=== PATIENT | female | born 1995 | race African-American/Black ===

== ENCOUNTER 2017-05-01 18:14 | Emergency (ER) | payer OTHER, MEDICAID ==
[2017-05-01 20:54] LABS: #Basophils 0.1 thou/uL (0.0-0.2); #Eosinphils 0.2 thou/uL (0.0-0.7); #Lymphocytes 1.9 thou/uL (1.20-3.40); #Monocytes 0.8 thou/uL (0.11-0.59); #Neutrophils 4.8 thou/uL (1.40-6.50); %Basophils 0.6 % (0.0-1.0); %Monocytes 9.7 % (0.0-10.0); Hematocrit 42.3 % (36.0-47.0); Mean Platelet Volume 7.8 fL (7.4-10.4); Red Blood Cell (RBC) Count 4.74 mill/uL (4.20-5.40); White Blood Cell (WBC) Count 7.7 thou/uL (4.8-10.8)
[2017-05-01 21:21] LABS: ALT (SGPT) 18 U/L (8-55); AST (SGOT) 17 U/L (5-34); Alkaline Phosphatase 59 U/L (40-150); Anion Gap 13 mmol/L (10-20); BUN (Urea Nitrogen) 6 mg/dL (7.0-18.7); Bilirubin, Total 0.6 mg/dL (0.2-1.2); Calc. Creatinine Clearance 0 mL/min (70-130); Calcium 9.6 mg/dL (7.8-10.44); Carbon Dioxide 27 mmol/L (22-29); Chloride 106 mmol/L (98-107); Estimated GFR-MDRD Greater than 90; Globulin 3.2 g/dL (2.4-3.5); Lipase 28 U/L (8-78); Protein, Total 7.4 g/dL (6.0-8.3)
== END 2017-05-01 21:20 | disposition home or self-care (01) ==
LOC: ERS 18:14
DX: H66.91 Otitis media, unspecified, right ear (principal); R10.9 Unspecified abdominal pain; E11.9 Type 2 diabetes mellitus without complications; I10 Essential (primary) hypertension
CPT/HCPCS: 80053; 82274; 83690; 84703; 85025; 93005

== ENCOUNTER 2017-08-04 13:39 | Emergency (ER) | payer MEDICAID, OTHER, SELFPAY ==
[2017-08-04 14:17] LABS: Bilirubin Negative (Negative); Blood, Urine Negative (Negative); Clarity CLOUDY (Clear); Glucose, Urine (Dipstick) Negative (Negative); Leukocyte Negative (Negative); Nitrite Negative (Negative); Protein, Urine (Dipstick) Negative (Neg-Trace); Specific Gravity, Urine 1.017 (1.002-1.036)
[2017-08-04 14:19] LABS: Pregnancy Test - Urine (BHCG) Negative (Negative); Pregu Control Background? CLEAR/WHITE (CLR/WHITE); Pregu Control Bar Appear? YES (CONTROL BAR); Specific Gravity 1.017 (1.002-1.036)
[2017-08-04] MEDS ORDERED: Ondansetron ODT 4 MG TAB ONE (14:58)
[2017-08-04] MEDS ORDERED: Acetaminophen 500 MG TAB ONE (15:19)
== END 2017-08-04 15:35 | disposition home or self-care (01) ==
LOC: ERS 13:39
DX: J11.1 Influenza due to unidentified influenza virus with other respiratory manifestations (principal); E11.9 Type 2 diabetes mellitus without complications; I10 Essential (primary) hypertension
CPT/HCPCS: 81003; 81025; 99283; Q0162

== ENCOUNTER 2017-08-28 01:12 | Emergency (ER) | payer OTHER, SELFPAY ==
[2017-08-28 01:30] LABS: Bilirubin Negative (Negative); Blood, Urine Negative (Negative); Clarity CLEAR (Clear); Glucose, Urine (Dipstick) Negative (Negative); Leukocyte Negative (Negative); Nitrite Negative (Negative); Protein, Urine (Dipstick) Negative (Neg-Trace)
[2017-08-28 01:36] LABS: #Basophils 0.2 thou/uL (0.0-0.2); #Eosinphils 0.1 thou/uL (0.0-0.7); #Lymphocytes 3.1 thou/uL (1.20-3.40); #Monocytes 0.5 thou/uL (0.11-0.59); #Neutrophils 3.6 thou/uL (1.40-6.50); %Basophils 2.3 % (0.0-1.0); %Eosinophils 1.7 % (0.0-10.0); %Lymphocytes 41.5 % (21.0-51.0); %Monocytes 6.7 % (0.0-10.0); %Neutrophils 47.9 % (42.0-75.0); Hemoglobin 13.6 g/dL (12.0-16.0); Mean Corpuscular HGB CONC 33.5 g/dL (32.0-36.0); Mean Corpuscular Hemoglobin 29.8 pg (27.0-31.0); Mean Corpuscular Volume 88.9 fl (81.0-99.0); Mean Platelet Volume 7.7 fL (7.4-10.4); Platelet Count 391 thou/uL (130-400); RBC Distribution Width 11.4 % (11.5-14.5); Red Blood Cell (RBC) Count 4.57 mill/uL (4.20-5.40); White Blood Cell (WBC) Count 7.5 thou/uL (4.8-10.8)
[2017-08-28 01:49] LABS: Pregnancy Test - Urine (BHCG) Negative (Negative); Pregu Control Background? CLEAR/WHITE (CLR/WHITE); Pregu Control Bar Appear? YES (CONTROL BAR)
[2017-08-28 01:58] LABS: Anion Gap 12 mmol/L (10-20); BUN (Urea Nitrogen) 10 mg/dL (7.0-18.7); Calc. Creatinine Clearance 0 mL/min (70-130); Calcium 9.5 mg/dL (7.8-10.44); Carbon Dioxide 25 mmol/L (22-29); Chloride 103 mmol/L (98-107); Estimated GFR-MDRD Greater than 90; Glucose 115 mg/dL (70-105); Lipase 35 U/L (8-78); Potassium 3.6 mmol/L (3.5-5.1); Sodium 136 mmol/L (136-145)
[2017-08-28] MEDS ORDERED: Ondansetron HCl/PF 4 MG in Sodium Chloride 0.9% 50 ML IVPB PRN (05:11)
[2017-08-28 05:19] LABS: BHCG - Serum Negative (NEGATIVE); Pregs Control Background? CLEAR/WHITE (CLR/WHITE); Pregs Control Bar Appear? YES (CONTROL BAR)
[2017-08-28] MEDS ORDERED: Ketorolac Tromethamine 30 MG/ML VIAL ONE (06:10)
--- NOTE | 2017-08-28 10:05 | HP ---
DATE OF SERVICE: 08/28/2017 TIME OF SERVICE: 4:30 a.m. LOCATION: ER bed 2. CHIEF COMPLAINT: Left lower quadrant pain. HISTORY OF PRESENT ILLNESS: This is a 22-year-old G1, P1-0-0-2, who [facility] sudden onset of severe left lower quadrant pain. She rates this pain 10/10, but has not taken anything for it. She describes the pain as sharp. Lying on her right side makes it a little bi t better. She has had diarrhea and bloating and belching for the last month, but says that this pain is different than that discomfort. She did have an episode of diarrhea prior to the pain. She dereje es any problems with urination. She reports an increase in discharge, but is relatively asymptomatic with that. REVIEW OF SYSTEMS: Negative for head, eyes, ears, nose, throat, cardiovascular, respiratory, GI, , neuro, psych, musculoskeletal, skin, or constitutional symptoms other than mentioned above. PAST MEDICAL HISTORY: 1. Type 2 diabetes. 2. Hypertension. PAST SURGICAL HISTORY: 1. x1 for twins. 2. Diagnostic laparoscopy a year ago for similar pain, but left ovarian hemorrhagic cyst with a smal l amount of blood in the belly with no torsion. SALESPERSON BOOKS HISTORY: She has a history of prior hemorrhagic cyst on her left ovary, treated with laparosc opy. She also has 1 prior with a for twins. She has not used anything for contr aception. Last menstrual period of 06/30/2017. MEDICATIONS: Metformin. ALLERGIES: 1. HYDROCODONE. 2. TRAMADOL. 3. TRAZODONE. 4. VICODIN. SOCIAL HISTORY: Negative for tobacco, alcohol, or drug abuse. She has 1 partner for the last 6-1/2 years. FAMILY HISTORY: Negative for breast, ovary, uterine, or colon cancer. PHYSICAL EXAMINATION: VITAL SIGNS: Blood pressure 130/83, pulse 108, temperature afebrile. GENERAL: Awake, alert, in no acute distress, appears comfortable. CHEST: Nonlabored breathing. ABDOMEN: Obese, soft, mildly tender to palpation. No rebound or guarding. Pelvic bimanual exam wit h no cervical motion tenderness. Exam otherwise unremarkable, but limited to body habitus. EXTREMITIES: A 1+ pitting edema. LABORATORY DATA: WBC 7.5, hemoglobin 13.6, hematocrit 40.6, platelets 391,000, glucose 115. Urinaly sis negative. Urine test negative. IMAGING: Transvaginal ultrasound was performed by Radiology and revealed an anteverted uterus that a ppeared within normal limits. Right ovary with 1 cm cyst and measured 4.05 x 2.1 x 3.2 cm. Left ova ry measured 2.33 x 1.85 x 2.3 cm, endometrial stripe 0.87 and questionably positional flow to the lef t ovary with what looks like physiologic free fluid in the pelvis. ASSESSMENT AND PLAN: A 22-year-old para 1 with left lower quadrant pain and sudden onset earlier tod ay. There is questionable decreased flow on ultrasound concerning by radiology for left ovarian tors ion; however, I think this is very unlikely given her normal size of her ovary and her clinical findi ngs. We will observe her for a few hours and repeat exam to determine the proper next step. I did r ecommend performing an hCG just to be certain that she is not and she has not had a period s zoe June.
--- NOTE | 2017-08-28 10:20 | ULT ---
PRELIMINARY REPORT/[facility]/EMERGENCY AFTER HOURS PROCEDURE: EXAM: US Pelvis, Transvaginal US Duplex Arterial/Venous of the Pelvis, Complete CLINICAL HISTORY: 22 years old, female; Pain; Other: Llq pain, HX of prev lt ov cyst 3 mo age TECHNIQUE: Real-time transvaginal pelvic ultrasound (complete) with image documentation. Transvaginal imaging wa s used for better evaluation of the endometrium and adnexa. Real-time duplex ultrasound scan of the arterial and venous flow of the pelvis with color Doppler reilly w and spectral waveform analysis was also performed for evaluation of pelvic and ovarian blood flow a nd torsion. COMPARISON: No relevant prior studies available. FINDINGS: Uterus/cervix: Endometrium measures 9 mm in thickness. No myometrial mass. Right ovary: Right ovarian follicle/corpus luteum. Normal blood flow. No evidence of torsion. Left ovary: Left ovary is located deep, posterior to the uterus and therefore difficult to visualize and evaluate. It is normal in size without enlargement or focal lesion, however blood flow is not wel l visualized/evaluated. Free fluid: Mild cul-de-sac free fluid. IMPRESSION: No left ovarian mass or enlargement, although blood flow is not well visualized/evaluated which could relate to positional/technical limitations; however recommend clinical correlation and gynecologic consultation if there is a concern for torsion. Thank you for allowing us to participate in the care of your patient. Dictated and Authenticated by: Devendra Don MD 08/28/2017 3:58 AM Central Time ([place] & [place]) FINAL REPORT PELVIC ULTRASOUND: Date: 08/28/17 HISTORY: Pelvic pain. COMPARISON: 12/25/16. TECHNIQUE: Endovaginal imaging of the pelvis is performed. Ovaries are interrogated with Nguyen scale, color flow, Doppler imaging, and spectral waveform analysis. FINDINGS/IMPRESSION: This report is in agreement with the preliminary report by [facility]. Uterus and endometrium are unremarka ble. Right ovary has an overall normal echotexture. There is flow. Follicle in the right ovary is not ed. Due to the location of the left ovary, evaluation is limited. No obvious left ovarian mass. Evalu ation for flow is limited due to location. Correlate clinically. PRESCRIPTION EYEGLASS MAKER consultation is recommended. Sma ll amount of free fluid in the cul-de-sac is noted. POS: SJ
--- NOTE | 2017-08-28 10:52 | DIS ---
DATE OF DISCHARGE: 08/28/2017 TIME OF SERVICE: 0850 hours. SUMMARY OF HOSPITAL COURSE: Ms. Lew presented to the emergency department around 0100 this tania ng, was seen by Dr. Mehta. She complained of left lower quadrant pain. Of note, the [facility] over the past several years. She received a laparoscopy by Dr. Colon a little over half a year ago with a small hemorrhagic ovarian cyst without evidence of tors ion. She presented today complaining of pain on 9-10 scale. She continues to complain of this pain; however, the patient has not had recent narcotics and yet had to be aroused from deep slumber to giv e this pain score. Her exam is benign, without rebound or guarding. Review of the ultrasound images revealed no evidence of torsion, cyst, or significant fluid consistent with intraabdominal hemorrhag e. After discussion with the patient, I feel like her care is best handled as an outpatient. She wi ll be discharged home. Follow up with her PHARMACY BENEFIT MANAGER. She was instructed to follow up with her PHARMACY BENEFIT MANAGER a bout chronic left lower quadrant pain and consider possible surgical management in a nonemergent outp atient ambulatory basis. No medications on discharge. Vital signs remained stable.
[2017-08-30 00:48] LABS: Chlamydia by PCR Not Detected (NotDetected); GC by PCR Not Detected (NotDetected)
== END 2017-08-28 09:07 | disposition home or self-care (01) ==
LOC: ERS 01:12
DX: R10.2 Pelvic and perineal pain (principal); E11.9 Type 2 diabetes mellitus without complications; I10 Essential (primary) hypertension; Z79.84 Long term (current) use of oral hypoglycemic drugs
CPT/HCPCS: 36415; 76856; 80048; 81003; 81025; 82150; 83690; 84703; 85025; 87480; 87491; 87510; 87591; 87660; 96374; J1885

== ENCOUNTER 2017-09-01 22:45 | Outpatient (CLI) | payer OTHER | END 2017-09-01 22:46 | disposition home or self-care (01) | LOC: LAB 22:45 | PROVIDERS: ATTEND Family Medicine | DX: Z00.00 Encounter for general adult medical examination without abnormal findings (principal); E11.9 Type 2 diabetes mellitus without complications; E78.5 Hyperlipidemia, unspecified; R10.9 Unspecified abdominal pain; R73.02 Impaired glucose tolerance (oral) | CPT/HCPCS: 83630; 87045; 87046; 87086; 87449; 87899 ==

== ENCOUNTER 2017-09-21 09:44 | Outpatient (CLI) | payer OTHER, MEDICAID ==
[2017-09-21] MEDS ORDERED: Iopamidol 370 76% 100 ML VIAL ONE (17:06)
== END 2017-09-21 09:45 | disposition home or self-care (01) ==
LOC: BICCT 09:44
PROVIDERS: ATTEND Internal Medicine Gastroenterology
DX: R10.32 Left lower quadrant pain (principal)
CPT/HCPCS: 74177

== ENCOUNTER 2018-01-06 20:53 | Emergency (ER) | payer OTHER, MEDICAID ==
[2018-01-06 21:30] LABS: Bilirubin Negative (Negative); Blood, Urine Negative (Negative); Clarity CLOUDY (Clear); Glucose, Urine (Dipstick) Negative (Negative); Leukocyte Small (Negative); Nitrite Negative (Negative); Protein, Urine (Dipstick) Negative (Neg-Trace); Specific Gravity, Urine 1.018 (1.002-1.036)
[2018-01-06 21:31] LABS: Bacteria/HPF Rare-Few HPF (None Seen); Hyaline Casts/LPF 0-3 HYALINE CAST LPF (0-3 Hyaline); Pathc Cast-AUWi Flag 0.72 (0-2.49); RBC/HPF 0-3 HPF (0-3); WBC/HPF 0-3 HPF (0-3)
[2018-01-06 21:50] LABS: #Eosinphils 0.1 thou/uL (0.0-0.7); #Lymphocytes 2.4 thou/uL (1.20-3.40); #Monocytes 0.6 thou/uL (0.11-0.59); #Neutrophils 3.6 thou/uL (1.40-6.50); %Basophils 0.3 % (0.0-1.0); %Eosinophils 0.9 % (0.0-10.0); %Monocytes 9.2 % (0.0-10.0); %Neutrophils 53.6 % (42.0-75.0); Hemoglobin 12.7 g/dL (12.0-16.0); Mean Corpuscular HGB CONC 34.3 g/dL (32.0-36.0); Mean Corpuscular Hemoglobin 29.5 pg (27.0-31.0); Mean Platelet Volume 7.6 fL (7.4-10.4); Platelet Count 311 thou/uL (130-400); RBC Distribution Width 11.6 % (11.5-14.5); Red Blood Cell (RBC) Count 4.32 mill/uL (4.20-5.40); White Blood Cell (WBC) Count 6.8 thou/uL (4.8-10.8)
--- NOTE | 2018-01-07 07:33 | ULT ---
PELVIC ULTRASOUND INCLUDING TRANSABDOMINAL AND TRANSVAGINAL AND VASCULAR DUPLEX WITH COLOR AND SPECTR AL DOPPLER IMAGING: Date: 01/06/18 COMPARISON: 08/28/17. HISTORY: Left lower quadrant pain for 2 days. Quantitative HCG 104. FINDINGS: The uterus measures 9.1 cm in length, and 5.0 x 5.1 cm transversely. The endometrium is thickened, up to 1.4 cm. Left ovary demonstrates a small, approximately 1.0 x 1.4 cm cyst. The right ovary demonst rates somewhat echogenic margined, thin-walled cyst measuring 0.8 x 1.1 cm. There is trace free fluid . IMPRESSION: No evidence for intrauterine or extrauterine by ultrasound. Follow-up serum HCGs are recomm ended. Depending on the results of that, a follow-up ultrasound examination in 5-7 days might be cons idered as well. POS: DENI
[2018-01-09 21:55] LABS: Chlamydia by PCR Not Detected (NotDetected); GC by PCR Not Detected (NotDetected)
== END 2018-01-07 00:12 | disposition home or self-care (01) ==
LOC: ERS 20:53
DX: O98.811 Other maternal infectious and parasitic diseases complicating pregnancy, first trimester (principal); B37.3 Candidiasis of vulva and vagina; E11.9 Type 2 diabetes mellitus without complications; I10 Essential (primary) hypertension; Z79.84 Long term (current) use of oral hypoglycemic drugs; Z3A.01 Less than 8 weeks gestation of pregnancy
CPT/HCPCS: 36415; 76856; 81003; 81015; 84702; 85025; 86850; 86900; 86901; 87086; 87480; 87491; 87510; 87591; 87660

== ENCOUNTER 2018-03-20 22:42 | Emergency (ER) | payer OTHER ==
[2018-03-21] MEDS ORDERED: Mag-Al 1200 mg/1200 mg/30 ML UDCUP ONE (00:01)
[2018-03-21] MEDS ORDERED: Lidocaine Viscous Sol 2% 15 ml UD Cup ONE (00:01)
[2018-03-21 00:05] LABS: #Eosinphils 0.1 thou/uL (0.0-0.7); #Lymphocytes 2.2 thou/uL (1.20-3.40); #Monocytes 0.5 thou/uL (0.11-0.59); #Neutrophils 3.8 thou/uL (1.40-6.50); %Basophils 0.5 % (0.0-1.0); %Eosinophils 0.8 % (0.0-10.0); %Lymphocytes 33.7 % (21.0-51.0); %Monocytes 7.1 % (0.0-10.0); %Neutrophils 57.9 % (42.0-75.0); Hemoglobin 12.2 g/dL (12.0-16.0); Mean Corpuscular HGB CONC 34.8 g/dL (32.0-36.0); Mean Corpuscular Hemoglobin 29.8 pg (27.0-31.0); Mean Corpuscular Volume 85.6 fL (78.0-98.0); Mean Platelet Volume 8.5 fL (7.4-10.4); Platelet Count 284 thou/uL (130-400); RBC Distribution Width 11.3 % (11.5-14.5); White Blood Cell (WBC) Count 6.6 thou/uL (4.8-10.8)
[2018-03-21 00:25] LABS: ALT (SGPT) 16 U/L (8-55); AST (SGOT) 17 U/L (5-34); Albumin 3.9 g/dL (3.5-5.0); Alkaline Phosphatase 44 U/L (40-150); Anion Gap 10 mmol/L (10-20); BUN (Urea Nitrogen) 5 mg/dL (7.0-18.7); Bilirubin, Total 0.8 mg/dL (0.2-1.2); Calc. Creatinine Clearance 0 mL/min (70-130); Calcium 9.6 mg/dL (7.8-10.44); Carbon Dioxide 26 mmol/L (22-29); Chloride 104 mmol/L (98-107); Estimated GFR-MDRD Greater than 90; Globulin 2.9 g/dL (2.4-3.5); Glucose 105 mg/dL (70-105); Magnesium 1.6 mg/dL (1.6-2.6); Potassium 3.6 mmol/L (3.5-5.1); Protein, Total 6.8 g/dL (6.0-8.3); Sodium 136 mmol/L (136-145)
[2018-03-21 01:06] LABS: Bilirubin Negative (Negative); Blood, Urine Negative (Negative); Clarity CLEAR (Clear); Glucose, Urine (Dipstick) Negative (Negative); Leukocyte Negative (Negative); Nitrite Negative (Negative); Protein, Urine (Dipstick) Negative (Neg-Trace); Specific Gravity, Urine 1.009 (1.002-1.036); Urobilinogen 0.2 mg/dL (0.2-1.0)
--- NOTE | 2018-03-24 11:57 | EKG ---
Test Reason : Blood Pressure : / mmHG Vent. Rate : 079 BPM Atrial Rate : 079 BPM P-R Int : 166 ms QRS Dur : 080 ms QT Int : 348 ms P-R-T Axes : 023 028 001 degrees QTc Int : 399 ms Sinus rhythm with sinus arrhythmia with occasional Premature ventricular complexes Otherwise normal ECG Confirmed by KHANG SWAIN ([id number]), editor in chief ADVE HERCULES ([id number]) on 03/24/2018 11:56:57 AM Referred By: Confirmed By:KHANG SWAIN
== END 2018-03-21 01:11 | disposition home or self-care (01) ==
LOC: ERS 22:42
DX: O99.89 Other specified diseases and conditions complicating pregnancy, childbirth and the puerperium (principal); R07.9 Chest pain, unspecified; E11.9 Type 2 diabetes mellitus without complications; I10 Essential (primary) hypertension; Z79.84 Long term (current) use of oral hypoglycemic drugs; Z79.82 Long term (current) use of aspirin; Z3A.15 15 weeks gestation of pregnancy
CPT/HCPCS: 36415; 80053; 81003; 83735; 85025; 93005

== ENCOUNTER 2018-06-08 16:31 | Emergency (ER) | payer OTHER | END 2018-06-08 18:16 | disposition left against medical advice (07) | LOC: ERS 16:31 | DX: Z53.21 Procedure and treatment not carried out due to patient leaving prior to being seen by health care provider (principal) ==

== ENCOUNTER 2018-10-19 07:32 | Emergency (ER) | payer OTHER ==
[2018-10-19] MEDS ORDERED: Lidocaine Viscous Sol 2% 15 ml UD Cup ONE (08:07)
[2018-10-19] MEDS ORDERED: Mag-Al 1200 mg/1200 mg/30 ML UDCUP ONE (08:07)
[2018-10-19] MEDS ORDERED: Famotidine 20 MG TAB ONE (08:07)
[2018-10-19 08:21] LABS: Hemoglobin 12.9 g/dL (12.0-16.0); Mean Corpuscular HGB CONC 33.3 g/dL (32.0-36.0); Mean Corpuscular Hemoglobin 28.5 pg (27.0-31.0); Mean Corpuscular Volume 85.7 fL (78.0-98.0); Mean Platelet Volume 8.5 fL (7.4-10.4); Platelet Count 358 thou/uL (130-400); RBC Distribution Width 12.1 % (11.5-14.5); Red Blood Cell (RBC) Count 4.53 mill/uL (4.20-5.40); White Blood Cell (WBC) Count 3.9 thou/uL (4.8-10.8)
[2018-10-19 08:26] LABS: BHCG - Serum Negative (NEGATIVE); Pregs Control Background? CLEAR/WHITE (CLR/WHITE); Pregs Control Bar Appear? YES (CONTROL BAR)
[2018-10-19 08:37] LABS: Eosinophils 2 % (0-10); Lymphocytes 50 % (21-51); MDiff Complete? YES; Monocytes 12 % (0-10); Neutrophil 30 % (42-75); Platelet Morphology Comment Appears Adequate; RBC Morphology Normal; Reactive Lymphocytes 6 % (0-10)
[2018-10-19 08:39] LABS: Bilirubin Negative (Negative); Blood, Urine Large (Negative); Clarity CLEAR (Clear); Glucose, Urine (Dipstick) Negative (Negative); Leukocyte Negative (Negative); Nitrite Negative (Negative); Protein, Urine (Dipstick) Trace mg/dL (Neg-Trace); Specific Gravity, Urine 1.017 (1.002-1.036); Urobilinogen 0.2 mg/dL (0.2-1.0); pH, Urine 5.5 (5.0-9.0)
[2018-10-19 08:40] LABS: ALT (SGPT) 19 U/L (8-55); AST (SGOT) 19 U/L (5-34); Albumin 4.4 g/dL (3.5-5.0); Alkaline Phosphatase 73 U/L (40-150); Anion Gap 11 mmol/L (10-20); BUN (Urea Nitrogen) 12 mg/dL (7.0-18.7); Bilirubin, Total 0.9 mg/dL (0.2-1.2); Calc. Creatinine Clearance 0 mL/min (70-130); Calcium 9.6 mg/dL (7.8-10.44); Carbon Dioxide 27 mmol/L (22-29); Chloride 104 mmol/L (98-107); Estimated GFR-MDRD Greater than 90; Globulin 2.9 g/dL (2.4-3.5); Glucose 116 mg/dL (70-105); Lipase 47 U/L (8-78); Protein, Total 7.3 g/dL (6.0-8.3); Sodium 138 mmol/L (136-145)
[2018-10-19 08:45] LABS: Bacteria/HPF None Seen HPF (None Seen); Hyaline Casts/LPF 0-3 HYALINE CAST LPF (0-3 Hyaline); Pathc Cast-AUWi Flag 0.27 (0-2.49); RBC/HPF 21-50 HPF (0-3); WBC/HPF 0-3 HPF (0-3)
--- NOTE | 2018-10-19 08:59 | ULT ---
ULTRASOUND ABDOMEN LIMITED: (RIGHT UPPER QUADRANT) DATE: 10/19/18 HISTORY: 23-year-old female with right upper quadrant abdominal pain. FINDINGS: Gallbladder: Multiple tiny mobile calculi a few millimeters in size each. Normal gallbladder wall thi ckness of less than 2 mm. No pericholecystic fluid. No sonographic Townsend sign. Common duct: 3 mm. Liver: Normal size and echogenicity. Pancreas: Nonspecific sonographic appearance. Right kidney: No hydronephrosis. IMPRESSION: Positive for cholelithiasis, but without evidence of acute cholecystitis. CORNELIO Noel POS: DENI
== END 2018-10-19 09:11 | disposition home or self-care (01) ==
LOC: ERS 07:32
DX: K80.20 Calculus of gallbladder without cholecystitis without obstruction (principal); E11.9 Type 2 diabetes mellitus without complications; I10 Essential (primary) hypertension
CPT/HCPCS: 36415; 76705; 80053; 81003; 81015; 83690; 84703; 85025

== ENCOUNTER 2019-05-14 20:40 | Emergency (ER) | payer OTHER ==
[2019-05-14 21:22] LABS: #Basophils 0.1 thou/uL (0.0-0.2); #Eosinphils 0.1 thou/uL (0.0-0.7); #Monocytes 0.6 thou/uL (0.11-0.59); #Neutrophils 2.8 thou/uL (1.40-6.50); %Basophils 1.3 % (0.0-1.0); %Eosinophils 1.3 % (0.0-10.0); %Lymphocytes 45.4 % (21.0-51.0); %Monocytes 8.9 % (0.0-10.0); %Neutrophils 43.1 % (42.0-75.0); Mean Corpuscular HGB CONC 34.9 g/dL (32.0-36.0); Mean Corpuscular Hemoglobin 29.7 pg (27.0-31.0); Mean Platelet Volume 8.6 fL (7.4-10.4); Platelet Count 326 thou/uL (130-400); RBC Distribution Width 13.3 % (11.5-14.5); White Blood Cell (WBC) Count 6.6 thou/uL (4.8-10.8)
[2019-05-14 21:31] LABS: BHCG - Serum Negative (NEGATIVE); Pregs Control Background? CLEAR/WHITE (CLR/WHITE); Pregs Control Bar Appear? YES (CONTROL BAR)
== END 2019-05-14 21:52 | disposition home or self-care (01) ==
LOC: ERS 20:40
DX: N92.5 Other specified irregular menstruation (principal); E11.9 Type 2 diabetes mellitus without complications; I10 Essential (primary) hypertension
CPT/HCPCS: 36415; 84703; 85025; 99284